=== PATIENT | female | born 1975 | race African-American/Black ===

== ENCOUNTER 2024-05-13 14:12 | Emergency (ER) | payer OTHER ==
[~2024-05-13] VITALS: Ht 160 cm; Wt 72.6 kg
[2024-05-13 14:24] VITALS: BP 178/81; TEMP 98.3
[2024-05-13 15:00] LABS: BASOPHILS # (AUTO) 0.1 K/uL (0.0-0.2); BASOPHILS % (AUTO) 1.5 % (0.0-2.0); EOSINOPHILS # (AUTO) 0.2 K/uL (0.0-0.7); EOSINOPHILS % (AUTO) 4.8 % (0.0-6.0); HEMATOCRIT 37 % (33-45); HEMOGLOBIN 11.9 g/dL (11.5-14.8); LYMPHOCYTES % (AUTO) 44.2 % (20.0-44.0); MEAN CORPUSCULAR HEMOGLOBIN 23 PG (26.0-33.0); MEAN CORPUSCULAR HGB CONC 32 g/dl (31.0-36.0); MEAN CORPUSCULAR VOLUME 73 fL (82-100); MONOCYTES # (AUTO) 0.4 K/uL (0.1-1.30); MONOCYTES % (AUTO) 7.6 % (2.0-12.0); NEUTROPHILS # (AUTO) 1.9 K/uL (1.8-8.9); NEUTROPHILS % (AUTO) 41.9 % (43.0-81.0); PLATELET COUNT (AUTO) 247 K/uL (150-450); RED BLOOD CELL COUNT(AUTO) 5.07 MIL/uL (4.0-5.2); RED CELL DISTRIBUTION WIDTH 16.1 % (11.5-15.0); WHITE BLOOD COUNT (AUTO) 4.6 K/uL (4.3-11.0)
[2024-05-13 15:10] LABS: CALCIUM, SERUM 8.4 mg/dL (8.5-10.1); CARBON DIOXIDE 29 mmol/L (21-32); CHLORIDE 105 mmol/L (98-107); CREATININE 0.7 mg/dL (0.6-1.3); GLUCOSE 103 mg/dL (74-106); POTASSIUM 3.8 mmol/L (3.5-5.1); SODIUM SERUM 142 mmol/L (136-145); UREA NITROGEN, BLOOD 16 mg/dL (7-18)
[2024-05-13] MEDS ORDERED: KETOROLAC TROMETHAMINE 15 MG/ML VIAL ONE (15:36)
[2024-05-13] MEDS: KETOROLAC TROMETHAMINE 15 MG/ML VIAL IM ONE (15:41)
[2024-05-13] MEDS ORDERED: LIDO30AD10 TP (15:50)
[2024-05-13] MEDS ORDERED: NAPR-1009 PO (15:50)
[2024-05-13] MEDS ORDERED: ACET-868 PO (15:50)
[2024-05-13 15:56] VITALS: O2SAT 98
== END 2024-05-13 15:58 | disposition home or self-care (01) ==
LOC: ER 14:15
DX: M25.512 Pain in left shoulder (principal); R07.89 Other chest pain; G89.29 Other chronic pain; I10 Essential (primary) hypertension; Z86.73 Personal history of transient ischemic attack (TIA), and cerebral infarction without residual deficits; Z88.0 Allergy status to penicillin
CPT/HCPCS: 99284; 96372; 93005; 85025; 80048; 36415; 84484; J1885